=== PATIENT | male | born 1935 | race Caucasian/White ===

== ENCOUNTER 2017-01-01 21:32 | Inpatient (IN) | payer OTHER ==
[~2017-01-01] VITALS: Ht 177.8 cm; Wt 71.8 kg
--- NOTE | ~2017-01-01 | EKG ---
[address] [place] [address] ELECTROCARDIOGRAM REPORT Name: MIKAELCLEVELAND ALEJANDRO Room #: 434-P ADM IN M.R.#: [id number] Admission: 01/02/17 Attend Phys: Shell Carvajal Discharge: Date of : 31 Report #: [id number] THIS REPORT FOR: //name// [facility] Test Date: 2017-01-06 Test Time: 10:03:13 Pat Name: CLEVELAND YOUSSFE Department: Room: 434 P Gender: M Leather Softener: Tara ELLIOTT : 1935 Requested By: Shell Carvajal Order Number: [id number] MD: Alexander Gage Measurements Intervals [place] Rate: 107 P: -39 DC: 162 QRS: 60 QRSD: 147 T: 49 QT: 355 QTc: 474 Interpretive Statements Sinus tachycardia Right bundle branch block Baseline wander in lead(s) V5 Compared to ECG 01/02/2017 08:01:36 No significant changes Electronically Signed On 01-07-2017 8:37:38 CDT by Alexander Gage [email or web address] <ELECTRONICALLY SIGNED> By: Alexander Gage MD, [facility] 01/07/17 0837 1003 1003 Alexander Gage MD, [facility] /EPI
--- NOTE | ~2017-01-01 | HC ---
[facility] [place] [address] CONSULTATION Name: CLEVELAND YOUSSEF Room #: 434-P ADM IN M.R.#: [id number] Admission: 01/02/17 Attend Phys: Shell Carvajla Discharge: Date of : 31 Report #: [id number] THIS REPORT FOR: //name// CC: FAM unknown Shell Carvajal HISTORY OF PRESENT ILLNESS: The patient was admitted yesterday through the Emergency Room for right upper quadrant pain as well as diffuse abdominal pain and discomfort. The patient stated that this pain started about a week ago. It has been waxing and waning and has been consistent starting as of yesterday. The patient denies any recent bowel movements or any flatulence since the consistency has started yesterday. The patient does have a known infrarenal abdominal aneurysm that he is following Dr. Gage for and on CAT scan done on this admission, found to have this aneurysm being measured at 4.7 cm. The patient states he has not had any symptoms with this and has been following with Dr. Gage on a regular basis. PAST MEDICAL HISTORY: Peripheral vascular disease, coronary artery disease, COPD, chronic kidney disease stage 3, hyperlipidemia, has had pneumonia in 2012 and history of hypertension. PAST SURGICAL HISTORY: Cataract surgery, aortic valve replacement in 1997, cardiac stents in 2011, bilateral inguinal hernia repairs and bilateral breast lumpectomy is benign. SOCIAL HISTORY: The patient is , has 3 children. He is a former smoker, quit 7 years ago, previously smoked a pack and a half a day x 40 years and the patient does not drink any alcohol or use illicit drugs. FAMILY HISTORY: Mother and father are both . Mother at age 96. Father at 67 secondary to PR. ALLERGIES: No known drug allergies. MEDICATIONS: As follows: 1. Multivitamin. 2. Simvastatin 40 mg. 3. Omeprazole 20 mg. 4. Hydrochlorothiazide 25 mg. 5. Aspirin 81 mg. 6. K-Dur 20 mEq. 7. Combivent. 8. Advair 250/50. 9. Tylenol 325. 10. Diltiazem HCL 240 mg daily. REVIEW OF SYSTEMS: Twelve-point review of systems completed. [facility] [address] [place] [address] CONSULTATION Name: RBEANNAJanetCLEVELAND ALEJANDRO Room #: 434-P [facility] IN M.R.#: [id number] Admission: 01/02/17 Attend Phys: Shell Carvajal Discharge: Date of : 33 Report #: [id number] CONSTITUTION: Denies any fatigue, difficulty sleeping. HEENT: Does complain of recurrent headache. Denies any dizziness or hearing loss. RESPIRATORY: Does have some mild shortness of breath. Denies dyspnea or orthopnea. Denies any wheezing or coughing. CARDIOVASCULAR: Denies any chest pain, jaw pain, arm pain or murmurs. SKIN: Denies any rashes, psoriasis or eczema. ENDOCRINE: Denies any cold feet, night sweats or lack of concentration. GASTROINTESTINAL: Denies any nausea, vomiting or diarrhea . The patient does not have any bowel movements or any flatulence; however, was having normal bowel movements up until a few days ago. GENITOURINARY: Denies any urinary frequency, bloody urine or painful urination. NEUROLOGIC: Denies any seizures or neuropathy. PSYCHOLOGIC: Denies any hallucination, depression or anxiety. MUSCULOSKELETAL: Denies joint pain, stiffness, or swelling. Denies leg claudication. Denies any lupus, rheumatoid arthritis or celiac disease. PHYSICAL EXAMINATION: VITAL SIGNS: Blood pressure is 140/57, heart rate of 100, respirations 16, temperature is 36.4, O2 sat of 95% on 2 liters via nasal cannula. GENERAL: The patient is well-developed, well-nourished, has normal speech and mentation. HEENT: Eyes are PERRLA. He is normocephalic. Gaze appearing conjugate in all positions. No evidence of nystagmus. CARDIOVASCULAR: Regular rate and rhythm S1, S2, without murmur, gallops or thrills. LUNGS: Clear and equal in all dill. ABDOMEN: Soft, distended with tympany. Bowel sounds are hypoactive all around and is nontender to touch. SKIN: Has normal color, normal turgor. MUSCULOSKELETAL: A 5/5 strength in all muscle groups in upper and lower extremities. NEUROLOGIC: Cranial nerves 2-12 are examined and intact. The patient is alert and oriented x 3 and has +2 pulses to dorsalis pedis and posterior tibial bilateral. LABORATORY DATA: Sodium is 140, potassium is 3.9, chloride is 104, CO2 is 27, creatinine is 1.3, BUN is 53 and glucose is 86. White blood cell count is 13.7, hemoglobin is 13.8, hematocrit 41.9 and platelets are 232. CAT scan does show the patient to have an infrarenal abdominal aortic aneurysm measuring approximately 4.7 x 4.6 cm, does not appear to have any signs of dissection ASSESSMENT: Will be: 1. Infrarenal abdominal aortic aneurysm with above listed measurements. 2. Most likely the causative reason for abdominal distention is probable small-bowel obstruction. [facility] [address] [place] [address] CONSULTATION Name: CLEVELAND YOUSSEF Room #: 434-P ADM IN M.R.#: [id number] Admission: 01/02/17 Attend Phys: Shell Toth Priyankalonnie Discharge: Date of : 33 Report #: [id number] 3. Chronic kidney disease stage 3. 4. Hyperlipidemia. 5. Hypertension. 6. History of coronary artery disease. PLAN: At this time, we do not have any surgical indications for repair of abdominal aneurysm. We will continue to watch this patient. We will follow up with Dr. Gage. Dr. Monreal is planning on seeing the patient himself later on this evening and make final recommendations to the patient. Thank you for the consultation. <ELECTRONICALLY SIGNED> By: MAKENZIE Lisa 01/03/17 1451 1547 0003 MAKENZIE Lisa /nt
--- NOTE | ~2017-01-01 | HC ---
[facility] [place] [address] CONSULTATION Name: MIKAELCLEVELAND ALLEN Room #: 434-P ADM IN M.R.#: [id number] Admission: 01/02/17 Attend Phys: Shell Carvajal Discharge: Date of : 33 Report #: [id number] THIS REPORT FOR: //name// CC: FAM unknown Shell Carvajal DATE OF SERVICE: 01/02/2017 I have been asked to evaluate this 81-year-old male who has presented to the Emergency Department complaining of generalized abdominal pain, more severe in the right upper quadrant and a sensation of feeling bloated. HISTORY OF PRESENT ILLNESS: The patient reports that the pain began approximately last week, lasted 48 hours, then went away. He felt bloated and had some lower abdominal pain and approximately 2 days ago, the patient again had recurrence of his pain in the lower abdomen associated with loose stools. He denies melena or hematochezia. He denies any fever or chills, and has had some nausea and has had limited flatus in the last 24 hours. PAST MEDICAL HISTORY: Significant for aortic valve replacement in 1997, bioprosthetic valve, PVD, cardiac stent in 2011, COPD, AAA known for some time, chronic kidney disease stage 3, coronary artery disease, hyperlipidemia, pneumonia in 2012, he has had GI bleeding ulcers in the past, hypertension, bilateral inguinal hernia repairs and bilateral breast gynecomastia surgery, which were benign. CURRENT MEDICATIONS: Include multivitamins, Zocor 40 mg daily, omeprazole 20 mg daily, hydrochlorothiazide 25 mg, aspirin 81 mg, K-Dur, Advair Diskus, Tylenol and diltiazem 240 mg daily. ALLERGIES: No known drug allergies. SOCIAL HISTORY: He is , spouse is at the bedside. He previously smoked cigarettes for 40 years, a pack to pack and a half a day, 78-[id number] history of cigarette smoking. Alcohol, does not use and he quit cigarette smoking greater than 7 years ago. REVIEW OF SYSTEMS: His 10-point review of systems essentially noncontributory except for a recent change in gastrointestinal function and bloating with obstipation. PHYSICAL EXAMINATION: GENERAL: Reveals the patient who is comfortable, afebrile. VITAL SIGNS: Within normal limits, resting comfortably in bed. is at the bedside. HEENT: Pupils are equal, round, react to light. Extraocular movements within [address] [address] CONSULTATION Name: CLEVELAND YOUSSEF Room #: 434-P [facility] IN M.R.#: [id number] Admission: 01/02/17 Attend Phys: Shell Carvajal Discharge: Date of : 33 Report #: [id number] normal limits. No scleral icterus. NECK: Supple. LUNGS: Clear at the bases bilaterally. CARDIOVASCULAR: Regular rate and rhythm. ABDOMEN: Mild distention, mild tenderness in the right lower quadrant. No guarding or rebound. RECTAL: Not performed. NEUROLOGIC: He is oriented x 3, bilateral motor symmetry. Review of the patient's CAT scan demonstrates a very distal small bowel obstruction near the ileocecal valve, there is gas in the colon. There is dilated loops of small bowel. LABORATORY DATA: Demonstrated a white blood cell count with slight elevation at the time of presentation to the Emergency Department, now normal. Lactic acid level was greater than 2, now it is 1 with some IV fluids and hydration. DIAGNOSTIC IMPRESSION: Distal small-bowel obstruction without evidence of previous abdominal surgery. Plan would be IV fluids, NG suction, Buenrostro catheter for urinary retention at this time. GI consultation to consider the possibility of adequate NG decompression is achieved and prepping for a possible colonoscopy would be indicated, must consider the possibility of inflammatory changes in the distal small bowel versus neoplastic process. Thank you for allowing us to participate in his care. We will follow him with you. <ELECTRONICALLY SIGNED> By: Jose Luis Albert MD, FACS 01/03/17 0945 1153 2045 Jose Luis Albert MD, FACS /nt
--- NOTE | ~2017-01-01 | HC ---
[facility] [place] [address] CONSULTATION Name: CLEVELAND YOUSSEF Room #: 434-P [facility] IN M.R.#: [id number] Admission: 01/02/17 Attend Phys: Shell Carvajal Discharge: 01/08/17 Date of : 33 Report #: [id number] THIS REPORT FOR: //name// CC: FAM unknown Shell aCrvajal TYPE OF REPORT: Pulmonary consultation. PRIMARY CARE PHYSICIAN: Oscar Hoffman M.D. REFERRING PHYSICIAN: Shell Carvajal M.D. REASON FOR REFERRAL: Increasing dyspnea. HISTORY OF PRESENT ILLNESS: The patient is an 81-year-old white male who was admitted on 01/02/2017 with small-bowel obstruction. For the last day, the patient has developed increasing dyspnea. A pulmonary consultation was requested. The patient has known COPD. He is followed longitudinally by Dr. Jose Estevez. He has been managed medically for his small-bowel obstruction. He is improving. He has had bowel sounds along with bowel movements. Over the last day or so, he has noticed increasing dyspnea. He is congested. Otherwise, denies any chest pain or productive cough, purulent sputum or hemoptysis. His chest x-ray shows chronic left upper lobe volume loss for fibrosis. Calcified granuloma in the right upper lobe lung field. Small bilateral effusion. PAST MEDICAL HISTORY: Notable for COPD, severity unknown at this time; bioprosthetic aortic valve replacement in 1998; peripheral vascular disease; coronary artery disease with stent placement in 2011; abdominal aortic aneurysm; chronic kidney disease, stage 3; dyslipidemia and peptic ulcer disease. ALLERGIES: None to medications. HOME MEDICATIONS: Include Zocor, omeprazole, hydrochlorothiazide, aspirin, K-Dur, Combivent 1 puff q.i.d. p.r.n., one puff b.i.d., prednisone 10 mg once a day, Inderal and Tylenol p.r.n. FAMILY HISTORY: Noncontributory. SOCIAL HISTORY: The patient has smoked in the past but quit years ago. Denies any alcohol use. The patient is . REVIEW OF SYSTEMS: As mentioned above, otherwise 10-point system review [address] [address] CONSULTATION Name: CLEVELAND YOUSSEFLEY Room #: 434-P [facility] IN [facility].#: [id number] Admission: 01/02/17 Attend Phys: Shell Carvajal Discharge: 01/08/17 Date of : 33 Report #: [id number]. PHYSICAL EXAMINATION: GENERAL: He is awake and alert, in no distress. VITAL SIGNS: Temperature is 97.7 degrees Fahrenheit, pulse is 110, respiratory rate is 24, blood pressure 141/54 mmHg and saturation 95%. HEENT: Normocephalic and atraumatic. NECK: Supple, without lymphadenopathy or thyromegaly. CHEST: Breath sounds are fair with a few scattered crackles. No wheezes. CARDIOVASCULAR: Normal S1 and S2. No murmurs or gallop. Pulses are 2+/4+ bilaterally. ABDOMEN: Moderately distended. Positive bowel sounds. No masses felt. GENITOURINARY: Deferred. RECTAL: Deferred. EXTREMITIES: No cyanosis, clubbing, edema. LABORATORY DATA: Chest x-ray as mentioned above. Sodium 142, potassium 2.9, chloride 108, CO2 is 26, BUN is 6 and creatinine 0.7. Liver function test was grossly unremarkable. WBC 10,400; hemoglobin is 11.3 and platelets are normal. Albumin 2.6. Magnesium is low at 1.0. IMPRESSION: 1. Dyspnea in this 81-year-old white male with partial small-bowel obstruction. Etiology is secondary to underlying chronic obstructive pulmonary disease with mild exacerbation. Pneumonia is less likely. 2. Small-bowel obstruction slowly resolving. This is felt to be related to adhesions. 3. Acute kidney injury/chronic kidney disease. 4. Coronary artery disease, status post prior stent. 5. Peripheral vascular disease including abdominal aortic aneurysm, stable on recent CT imaging studies. 6. Nonsustained supraventricular tachycardia, clinically stable. RECOMMENDATIONS: Agree with bronchodilators and corticosteroids. Chest physiotherapy will be initiated. Wean O2 for saturation 90%. Thank you for this consultation. <ELECTRONICALLY SIGNED> By: Thomas Miranda MD 01/08/17 1732 1513 30 Thomas Miranda MD /nt
--- NOTE | ~2017-01-01 | EKG ---
[address] [address] ELECTROCARDIOGRAM REPORT Name: CLEVELAND YOUSSEF Room #: 434-P ADM IN M.R.#: [id number] Admission: 01/02/17 Attend Phys: Shell Carvajal Discharge: Date of : 33 Report #: [id number] THIS REPORT FOR: //name// [facility] Test Date: 2017-01-02 Test Time: 08:01:36 Pat Name: CLEVELAND YOUSSEF Department: Room: 434 P Gender: M Bindery Worker: Tara ELLIOTT : 1935 Requested By: America Bloom Order Number: [id number] MD: Brian Abdi Measurements Intervals [place] Rate: 104 P: 53 SC: 173 QRS: 84 QRSD: 132 T: 70 QT: 377 QTc: 496 Interpretive Statements Sinus tachycardia Right bundle branch block Compared to ECG 01/13/2015 17:24:17 Ventricular premature complex(es) no longer present Left anterior fascicular block no longer present Bifascicular block no longer present Electronically Signed On 01-02-2017 20:47:57 CDT by Brian Abdi [email or web address] <ELECTRONICALLY SIGNED> By: Brian Abdi MD 01/02/17 2047 0 0 Brian Abdi MD /EPI
[~2017-01-01 21:32] MED LIST: ADVAIR 250-501 EACH INH; ASPIRIN EC81 M1 PO; ASPIRIN325 PO; AUGMENTIN 875875 MG; AZITHROMYCIN 2250 MG; CEFTIN 250 MG250 MG PO; CIPRO500 M1 PO; COMBIVENT INH; COMBIVENT RESPIM4 GM INH; COREG6.25 MG PO; HYDROCHLOROTHIA25 M1 PO; INDERAL LA160 M1 PO; K-DUR 20 MEQ T20 MEQ PO; KEFLEX500 MG PO; KLOR-CON PO; MUCINEX TA600 MG/TA2 PO; MUCINEX600 MG PO; MULTI-VITAMIN1 EAC5 PO; OMEPRAZOLE 20 M20 MG PO; PLAVIX 75 MG TA75 M1 PO; PREDNISONE 1 MG1 M1; PREDNISONE 10 M10 MG PO; PROPRANOLOL 1010 MG PO; SIMVASTATIN40 MG PO; TYLENOL325 MG PO; ULTRAM 50MG TAB50 MG; VIBRAMYCIN 100100 M2 PO
[2017-01-01 21:34] VITALS: BP 127/73
[2017-01-01 22:36] LABS: HEMATOCRIT 41.9 % (42.0-52.0); HEMOGLOBIN 13.8 gm/dL (14.0-18.0); MCH 29.3 pg (26.0-34.0); MCHC 32.9 g/dL (28.0-37.0); PLATELET COUNT 232 thou/uL (150-400); RBC 4.71 mil/uL (4.50-6.00); RDW 14.3 % (10.5-14.5); WBC 13.7 thou/uL (4.0-11.0)
[2017-01-01 22:37] LABS: MANUAL DIFF YES
[2017-01-01 22:48] LABS: ALBUMIN 3.8 g/dL (3.4-5.0); CALCIUM 9.4 mg/dL (8.5-10.1); CREATININE 1.6 mg/dL (0.7-1.3); DIRECT BILIRUBIN 0.2 mg/dL (<0.1-0.3); TOTAL BILIRUBIN 0.9 mg/dL (<0.1-1.0); TOTAL PROTEIN 7.3 g/dL (6.4-8.2)
[2017-01-01 22:58] LABS: ANISOCYTOSIS SLIGHT; TOTAL CELL COUNT 100
[2017-01-02 01:12] VITALS: BP 139/68
[2017-01-02 01:40] LABS: URINE BILIRUBIN NEGATIVE (Negative); URINE BLOOD NEGATIVE (Negative); URINE COLOR YELLOW; URINE GLUCOSE-RANDOM* NEGATIVE (Negative); URINE KETONES NEGATIVE (Negative); URINE NITRITE NEGATIVE (Negative); URINE PROTEIN (DIPSTICK) NEGATIVE (Negative); URINE SPECIFIC GRAVITY 1.015 (1.003-1.035)
[2017-01-02 01:52] VITALS: BP 146/64
[2017-01-02] MEDS ORDERED: CARTIA XT240 M1 PO (02:20)
[2017-01-02 05:59] VITALS: BP 128/66
[2017-01-02 06:15] LABS: ANION GAP 9 mmol/L (7-16); BUN 23 mg/dL (7-18); CALCIUM 8.6 mg/dL (8.5-10.1); CHLORIDE 104 mmol/L (98-107); CO2 27 mmol/L (21-32); CREATININE 1.3 mg/dL (0.7-1.3); GLUCOSE 86 mg/dL (74-106); POTASSIUM 3.9 mmol/L (3.5-5.1); SODIUM 140 mmol/L (136-145); TROPONIN-I < 0.04 ng/mL (<0.04-0.07)
[2017-01-02 07:26] VITALS: BP 140/57
[2017-01-02 16:39] VITALS: BP 120/60
[2017-01-02 19:20] VITALS: BP 128/52
[2017-01-03 00:08] VITALS: BP 104/50
[2017-01-03 04:30] VITALS: BP 104/48
[2017-01-03 05:28] LABS: HEMATOCRIT 35.5 % (42.0-52.0); MCH 29.3 pg (26.0-34.0); MCHC 33.1 g/dL (28.0-37.0); MCV 88.8 fL (80.0-100.0); PLATELET COUNT 186 thou/uL (150-400); RDW 14.7 % (10.5-14.5); WBC 12.3 thou/uL (4.0-11.0)
[2017-01-03 05:32] LABS: HEMOGLOBIN 11.8 gm/dL (14.0-18.0); MANUAL DIFF YES
[2017-01-03 05:45] LABS: ALBUMIN 2.8 g/dL (3.4-5.0); CALCIUM 8.2 mg/dL (8.5-10.1); CREATININE 1.3 mg/dL (0.7-1.3); MAGNESIUM 1.6 mg/dL (1.8-2.4); POTASSIUM 3.9 mmol/L (3.5-5.1); TOTAL BILIRUBIN 1.3 mg/dL (<0.1-1.0); TOTAL PROTEIN 5.8 g/dL (6.4-8.2)
[2017-01-03 06:00] VITALS: BP 113/47
[2017-01-03 07:39] LABS: ABSOLUTE NEUTROPHILS 10.6 thou/uL (1.4-8.2); TOTAL CELL COUNT 100
[2017-01-03 07:40] LABS: ANISOCYTOSIS SLIGHT; PLATELET ESTIMATE NORMAL
[2017-01-03 08:51] VITALS: BP 111/61
[2017-01-03 16:27] VITALS: BP 126/53
[2017-01-03 19:33] VITALS: BP 128/58
[2017-01-04 03:31] LABS: HEMATOCRIT 33.8 % (42.0-52.0); HEMOGLOBIN 11.3 gm/dL (14.0-18.0); MCH 29.9 pg (26.0-34.0); MCHC 33.5 g/dL (28.0-37.0); MCV 89.4 fL (80.0-100.0); PLATELET COUNT 196 thou/uL (150-400); RBC 3.78 mil/uL (4.50-6.00); RDW 14.5 % (10.5-14.5); WBC 10.4 thou/uL (4.0-11.0)
[2017-01-04 03:35] LABS: MANUAL DIFF YES
[2017-01-04 03:41] LABS: CALCIUM 8.4 mg/dL (8.5-10.1); MAGNESIUM 1.6 mg/dL (1.8-2.4); POTASSIUM 3.8 mmol/L (3.5-5.1)
[2017-01-04 04:28] VITALS: BP 151/58
[2017-01-04 05:44] LABS: ABSOLUTE NEUTROPHILS 8.1 thou/uL (1.4-8.2); TOTAL CELL COUNT 100
[2017-01-04 07:46] VITALS: BP 152/72
[2017-01-04 12:14] VITALS: BP 153/79
[2017-01-04 17:38] VITALS: BP 158/80
[2017-01-04 19:30] VITALS: BP 145/72
[2017-01-05] VITALS: BP 113/71
[2017-01-05 04:30] VITALS: BP 129/55
[2017-01-05 06:33] LABS: CALCIUM 8.4 mg/dL (8.5-10.1); CREATININE 0.9 mg/dL (0.7-1.3); POTASSIUM 3.4 mmol/L (3.5-5.1)
[2017-01-05 08:00] VITALS: BP 129/56
[2017-01-05 15:56] VITALS: BP 108/51
[2017-01-05 19:21] VITALS: BP 132/64
[2017-01-06 05:44] VITALS: BP 120/63
[2017-01-06 09:00] VITALS: BP 133/64
[2017-01-06 16:00] VITALS: BP 122/60
[2017-01-06 19:30] VITALS: BP 131/62
[2017-01-07 00:05] VITALS: BP 152/69
[2017-01-07 04:35] VITALS: BP 111/49
[2017-01-07 06:51] LABS: ALBUMIN 2.6 g/dL (3.4-5.0); CREATININE 0.7 mg/dL (0.7-1.3); PHOSPHORUS 2.9 mg/dL (2.5-4.9)
[2017-01-07 06:53] LABS: POTASSIUM 2.9 mmol/L (3.5-5.1)
[2017-01-07 08:00] VITALS: BP 141/54
[2017-01-07 16:00] VITALS: BP 121/58
[2017-01-07 16:39] LABS: MAGNESIUM 1.4 mg/dL (1.8-2.4); POTASSIUM 3.5 mmol/L (3.5-5.1)
[2017-01-07 19:15] VITALS: BP 120/58
[2017-01-07 21:26] LABS: MAGNESIUM 1.5 mg/dL (1.8-2.4); POTASSIUM 3.6 mmol/L (3.5-5.1)
[2017-01-08 04:51] VITALS: BP 131/54
[2017-01-08 07:26] VITALS: BP 138/65
[2017-01-08 07:57] LABS: CALCIUM 8.8 mg/dL (8.5-10.1); CREATININE 0.9 mg/dL (0.7-1.3); POTASSIUM 4.4 mmol/L (3.5-5.1)
[2017-01-08] MEDS ORDERED: FLOMAX0.4 MG PO (11:35)
[2017-01-08] MEDS ORDERED: PREDNISONE 20 M20 MG PO (11:40)
[2017-01-08] MEDS ORDERED: SENOKOT-S1 TA1 PO (11:41)
[2017-01-08 12:18] VITALS: BP 138/65
== END 2017-01-08 15:14 | disposition home or self-care (01) | DRG 388 ==
LOC: ER 21:32 → EROBS 01-02 00:24 → 4S 01-02 00:24
PROVIDERS: Emergency Medicine; Hospitalist; Nurse Practitioner Acute Care; Surgery
PROC: 0D9670Z Drainage of Stomach with Drainage Device, Via Natural or Artificial Opening (ICD-10-PCS; principal; 2017-01-05)
DX: K56.60 Unspecified intestinal obstruction (principal); E43 Unspecified severe protein-calorie malnutrition; N17.9 Acute kidney failure, unspecified; J44.1 Chronic obstructive pulmonary disease with (acute) exacerbation; I47.1 Supraventricular tachycardia; J96.10 Chronic respiratory failure, unspecified whether with hypoxia or hypercapnia; N18.3 Chronic kidney disease, stage 3 (moderate); I73.9 Peripheral vascular disease, unspecified; I25.10 Atherosclerotic heart disease of native coronary artery without angina pectoris; I71.4 Abdominal aortic aneurysm, without rupture; E87.6 Hypokalemia; I12.9 Hypertensive chronic kidney disease with stage 1 through stage 4 chronic kidney disease, or unspecified chronic kidney disease; Z82.49 Family history of ischemic heart disease and other diseases of the circulatory system; Z87.11 Personal history of peptic ulcer disease; Z79.899 Other long term (current) drug therapy; Z95.2 Presence of prosthetic heart valve; Z87.01 Personal history of pneumonia (recurrent); Z95.5 Presence of coronary angioplasty implant and graft; Z87.891 Personal history of nicotine dependence; Z83.79 Family history of other diseases of the digestive system; Z68.22 Body mass index [BMI] 22.0-22.9, adult; Z98.49 Cataract extraction status, unspecified eye
CPT/HCPCS: 10100

== ENCOUNTER 2017-01-10 05:48 | Inpatient (IN) | payer OTHER ==
[~2017-01-10] VITALS: Ht 177.8 cm; Wt 74.8 kg
[2017-01-10] VITALS (50 sets, daily range): BP systolic 98–148; BP diastolic 50–107
--- NOTE | ~2017-01-10 | EKG ---
[address] [address] ELECTROCARDIOGRAM REPORT Name: MIKAELCLEVELAND ALEJANDRO Room #: 246-P ADM IN M.R.#: [id number] Admission: 01/10/17 Attend Phys: Bandar Wood MD Discharge: Date of : 33 Report #: [id number] THIS REPORT FOR: //name// [facility] ED Test Date: 2017-01-10 Test Time: 05:51:28 Pat Name: CLEVELAND YOUSSEF Department: Room: 246 Gender: M Monument Erector: logan : 1935 Requested By: Eddie Orellana Order Number: [id number] MD: Alexander Gage Measurements Intervals [place] Rate: 139 P: 79 VT: 120 QRS: 13 QRSD: 129 T: 55 QT: 301 QTc: 458 Interpretive Statements Sinus tachycardia Right bundle branch block Baseline wander in lead(s) V2 Compared to ECG 01/06/2017 10:03:13 No significant change was found Electronically Signed On 01-12-2017 15:31:49 CDT by Alexander Gage [email or web address] <ELECTRONICALLY SIGNED> By: Alexander Gage MD, [facility] 01/12/17 1531 0551 0551 Alexander Gage MD, [facility] /EPI
--- NOTE | ~2017-01-10 | HC ---
[facility] [place] [address] CONSULTATION Name: CLEVELAND YOUSSEF Room #: 246-P ADM IN M.R.#: [id number] Admission: 01/10/17 Attend Phys: Bandar Wood MD Discharge: Date of : 33 Report #: [id number] THIS REPORT FOR: //name// CC: Bandar Ellsworth INFECTIOUS DISEASE CONSULTATION DATE OF CONSULTATION: 01/11/2017. ATTENDING PHYSICIAN: Dr. Moreno. REASON FOR CONSULTATION: Positive blood cultures. HISTORY OF PRESENT ILLNESS: The patient is an 81-year-old white man recently discharged from [facility] after is evaluated for some bowel obstruction that resolved without surgery. The patient at present time is admitted with increasing shortness of breath. His initial workup included a couple of blood cultures that revealed Staphylococcus aureus. At present, the patient on 10-12 liters oxygen supplementation. He requires between 4-6 liters per minute at home on account of chronic obstructive pulmonary disease. The patient reports pain on the dorsal aspect of right wrist where he had an IV access previously. PAST MEDICAL HISTORY: Chronic obstructive pulmonary disease and previous episode of pneumonia. Coronary artery disease, coronary artery stenting. Status post aortic valve replacement with bioprosthetic valve [address] Messi Aaron. Peripheral vascular disease. Abdominal aortic aneurysm. Chronic kidney disease. Recurrent episode of pneumonia. Dyslipidemia. DRUG ALLERGIES: None listed. MEDICATIONS: The patient is on treatment with Levaquin 750 mg every 48 hours, vancomycin 1 g IV every 12 hours, Zosyn grams IV every 6 hours. He is also receiving potassium chloride supplementation. Aspirin, pantoprazole, enoxaparin, methylprednisolone, tamsulosin, furosemide p.r.n., acetaminophen, Cardizem, p.r.n. hydrocodone, Atrovent, albuterol inhalation treatments, magnesium and potassium supplementation per protocol. SOCIAL HISTORY: See history and physical records. FAMILY HISTORY: See history and physical records. REVIEW OF SYSTEMS: As above. PHYSICAL EXAMINATION: GENERAL: Elderly man, not toxic looking, in no distress, afebrile. [facility] [address] [place] [address] CONSULTATION Name: CLEVELAND YOUSSEF Room #: 246-P [facility] IN .R.#: [id number] Admission: 01/10/17 Attend Phys: Bandar Wood MD Discharge: Date of : 33 Report #: [id number] VITAL SIGNS: Temperature maximum since admission 99.5, pulse 143 down to 116, respirations 21, blood pressure 103/58. HEENMT: Head normocephalic, atraumatic. Pupils reactive. Conjunctivae no subconjunctival hemorrhage. Mouth normal. NECK: Supple, no thyromegaly. LUNGS: Few crackles, left base posteriorly. HEART: No gallop or murmur. ABDOMEN: Soft, no masses or megaly. GENITALIA AND RECTAL: Deferred. EXTREMITIES: There is induration and point tenderness dorsal aspect right distal forearm, wrist. There is trace pretibial edema. NEUROLOGIC: Grossly within normal limits. LABORATORY DATA: Sodium 139, potassium 2.8, BUN 22, creatinine 1.3, glucose 152, magnesium 1.4. WBC 23,600, hemoglobin 11.3 g/dL, platelets 320,000. Methicillin-resistant Staphylococcus aureus screen negative. Respiratory viral panel by PCR pending. Urinalysis negative. ABGs , pCO2 of 42, pO2 of 64, bicarbonate 30.2. This set of gases on FIO2 of 40%, 6 of PEEP and BiPAP on pressure support. MICROBIOLOGY DATA: Blood cultures obtained on 01/10/2017, 09/05 revealed Staphylococcus aureus, the third culture remained negative so far. It is said to be presumptive methicillin-resistant Staphylococcus aureus. Urine negative for legionella antigen and Streptococcus pneumoniae antigen. RADIOLOGY EVALUATION: CT scan of the chest negative for pulmonary embolisms, positive for chronic obstructive pulmonary disease, a bullous and chronic changes, left lung base posteriorly. ASSESSMENT: 1. Staphylococcus aureus bacteremia, possibly secondary to right wrist previous IV access. 2. Chronic obstructive pulmonary disease with respiratory failure. 3. Status post bioprosthetic aortic valve replacement 19 years ago. 4. Chronic kidney disease. 5. Recent bowel obstruction. SUGGESTIONS: Recommend repeat blood cultures x 2. Continue vancomycin for sure. Possibly history line antibiotic regimen and discontinue Levaquin, Zosyn shortly. Discuss situation with the patient's family, [place] [address] CONSULTATION Name: CLEVELAND YOUSSEF Room #: 246-P ADM IN M.R.#: [id number] Admission: 01/10/17 Attend Phys: Bandar Wood MD Discharge: Date of : 33 Report #: [id number] Wood, thank you for requesting our suggestions in the care of your patient. <ELECTRONICALLY SIGNED> By: Niels Abdi MD 01/12/17 0624 0909 1454 Niels Abdi MD /nt
--- NOTE | ~2017-01-10 | HC ---
[facility] [place] [address] CONSULTATION Name: CLEVELAND YOUSSEF Room #: 201-P ADM IN M.R.#: [id number] Admission: 01/10/17 Attend Phys: Bandar Wood MD Discharge: Date of : 31 Report #: [id number] THIS REPORT FOR: //name// CC: Bandar Hoffman MD DATE OF SERVICE: 01/10/2017 REASON FOR CONSULTATION: Respiratory failure. CHIEF COMPLAINT: Shortness of breath. HISTORY OF PRESENT ILLNESS: Our group was asked to see the patient in consultation while hospitalized at [facility], just discharged on the 08 of January after being admitted for a small-bowel obstruction, apparently resolved; however, he had some increased shortness of breath and felt possibly due to small-bowel obstruction or due to COPD exacerbation. The patient had increasing shortness of breath last night, cough with difficulty clearing sputum, had some left upper thoracic pain , was anteriorly, felt like it is going posteriorly into the back, had some low-grade fevers. No chills or sweats. Cough productive of yellow sputum. Denies any hemoptysis. The patient is typically on inhaled therapy and some supplemental oxygen for his chronic COPD. When he presented to the emergency department, a CT scan of the chest PE protocol revealed predominately scattered right-sided pulmonary infiltrates and severe emphysema, small bilateral pleural effusions. He has received some diuresis, systemic steroids, bronchodilators, and is on antibiotics for healthcare-associated pneumonia and placed on noninvasive positive pressure ventilation with BiPAP, currently in ICU, resting comfortably. He is speaking in full sentences while on BiPAP and does not appear in any distress. ALLERGIES: None known. HOME MEDICATIONS: 1. Aspirin 81 mg daily. 2. Diltiazem 240 mg daily. 3. Advair 250/50 twice daily. 4. Combivent inhaler p.r.n. 5. Hydrochlorothiazide 25 mg daily. 6. Multivitamin. 7. Prilosec daily. 8. Recently on prednisone. 9. Senokot. 10. Simvastatin. [address] [address] CONSULTATION Name: CLEVELAND YOUSSEF Room #: 201-P [facility] IN M.R.#: [id number] Admission: 01/10/17 Attend Phys: Bandar Wood MD Discharge: Date of : 33 Report #: [id number] 11. Tamsulosin. SOCIAL HISTORY: The patient is an ex-smoker. No significant alcohol abuse. He is . Currently retired. FAMILY HISTORY: Negative for any significant pulmonary disease. REVIEW OF SYSTEMS: CONSTITUTIONAL: Noted low grade fever, did not check temperature, no chills or rigors. ENT: No upper respiratory congestion, rhinorrhea or dysphagia. CARDIOVASCULAR: No chest pains or palpitations. GASTROINTESTINAL: Some abdominal distention and recent small-bowel obstruction which appeared to be resolved. The patient states he is having bowel movement. GENITOURINARY: No dysuria, no frequency. INTEGUMENT: Denies any rash. MUSCULOSKELETAL: Some right wrist pain of unclear etiology, feels that it might be related to recent IV site. PHYSICAL EXAMINATION: VITAL SIGNS: Temperature 98.9, 99.5 in the emergency department, pulse 130s and regular, respiratory rate 24, blood pressure 120/62, oxygen saturation 99% on current BiPAP of 16/6, 60%. GENERAL: This is a pleasant elderly male, does not appear in any distress. HEENT: Was not assessed due to BiPAP being in place. NECK: Supple. No lymphadenopathy. Jugular venous pressure does not appear elevated. LUNGS: Diminished with some inspiratory crackles. CARDIOVASCULAR: Heart was tachycardic, but regular. No murmurs noted. ABDOMEN: Soft, mild attention, bowel sounds are active. EXTREMITIES: 1+ lower extremity edema. No clubbing or cyanosis. LABORATORY DATA: A CT scan as described in HPI. Sodium 137, potassium 4.3, chloride 99, bicarbonate 29, BUN 21, creatinine 1.3, glucose 69. White blood cell count 23,000, hemoglobin 12, hematocrit 37, and platelet count 363. Arterial blood gas on BiPAP 16/6, 60% FIO2 revealed pH 7.52, pCO2 of 34, pO2 of 197, and bicarbonate 28. Cultures are pending. IMPRESSION: 1. Healthcare-associated pneumonia. 2. Acute hypoxemic respiratory failure on chronic hypoxemic respiratory failure. 3. Sinus tachycardia. 4. Chronic obstructive pulmonary disease with acute exacerbation. 5. Recent small-bowel obstruction. [address] [address] CONSULTATION Name: CLEVELAND YOUSSEF Room #: 201-P ADM IN M.R.#: [id number] Admission: 01/10/17 Attend Phys: Bandar Wood MD Discharge: Date of : 33 Report #: [id number] RECOMMENDATIONS: 1. Continue with Zosyn and vancomycin. 2. Await cultures. 3. Urinary pneumococcal legionella antigen test. 4. Nasal swab for respiratory viral panel. 5. Bronchodilators q. 4 hours. 5. Systemic steroids with taper. 6. ICU care. 7. BiPAP as needed during the day until overall improved. 8. Additional recommendations to follow. We will follow along with you. Thank you for requesting our suggestions. <ELECTRONICALLY SIGNED> By: Harshal Ledesma MD 01/20/17 1203 1229 0139 Harshal Ledesma MD /abdirahman
--- NOTE | ~2017-01-10 | 2DMMODE ---
[facility] [address] [place] [address] 2 D/M-MODE ECHOCARDIOGRAM Name: MIKAELCLEVELAND ALEJANDRO Room #: 246-P ADM IN M.R.#: [id number] Admission: 01/10/17 Attend Phys: Bandar Wood Discharge: Date of : 33 Date of Service: 01/10/17 1826 Report #: [id number] THIS REPORT FOR: //name// APPROVED REPORT Study performed: 01/10/2017 12:30:08 EXAM: Comprehensive 2D, Doppler, and color-flow Echocardiogram Patient Location: Bedside Room #: 246 Status: routine Other Information Study Quality: Adequate/Patient in ICU on BiPAP Indications Congestive Heart Failure COPD AVR Bioprosthetic, CAD, Stents 2D Dimensions RVDd: 39.72 mm LVEF(%): 73.62 (>50%) IVSd: 8.42 (7-11mm) LVOT Diam: 21.53 (18-24mm) LVDd: 39.92 mm PWd: 8.09 (7-11mm) Ascending Ao: 31.71 (22-36mm) LVDs: 23.13 (25-40mm) Aortic Root: 28.69 mm IVC: 2.40 mm Knapp's LVEF: 73.62 % Volumes Left Atrial Volume (Systole) Single Plane 4CH: 25.35 mL Single Plane 2CH: 41.05 mL LA ESV Index: 19.00 mL/m2 Aortic Valve AoV Peak Cheo.: 2.41 m/s AO Peak Gr.: 23.25 mmHg LVOT Max P.90 mmHg AO Mean Gr.: 8.67 mmHg AO V2 Mean: 1.31 m/s LVOT Max V: 1.80 m/s AO V2 VTI: 30.82 cm ERIC Vmax: 2.71 cm2 Mitral Valve E/A Ratio: 0.6 [facility] [place] [address] 2 D/M-MODE ECHOCARDIOGRAM Name: CLEVELAND YOUSSEF ALEJANDRO Room #: 246-P [facility] IN M.R.#: [id number] Admission: 01/10/17 Attend Phys: Bandar Wood Discharge: Date of : 33 Date of Service: 01/10/17 1826 Report #: [id number] MV Decel. Time: 196.31 ms MV E Max Cheo.: 0.83 m/s MV A Cheo.: 1.29 m/s MV PHT: 56.93 ms Pulmonary Valve PV Peak Cheo.: 0.96 m/s PV Peak Gr.: 3.71 mmHg Pulmonary Vein P Vein S: 0.85 m/s P Vein A: 0.41 m/s P Vein D: 0.37 m/s P Vein S/D Ratio: 2.30 Tricuspid Valve TR Peak Cheo.: 3.69 m/s RAP Estimate: 10.00 mmHg TR Peak Gr.: 54.63 mmHg PA Pressure: 65.00 mmHg Left Ventricle The left ventricle is normal size. There is normal LV segmental wall motion. There is normal left ventricular wall thickness. The left ventricular systolic function is normal. The left ventricular ejection fraction is within the normal range. LVEF is 55-60%. This study is not technically sufficient to allow evaluation of the LV diastolic function due to tachycardia. Right Ventricle Right ventricle is dilated. The right ventricular systolic function is normal. Atria Left atrium is dilated. Right atrium is dilated. Aortic Valve Bioprosthetic aortic valve is present with a peak velocity of 2.4 m/s and a peak gradient of 23 mmHg and mean of 9 mmHg. Trace aortic regurgitation. Mitral Valve Mild mitral annular calcification. Mild mitral regurgitation. No evidence of mitral valve stenosis. Tricuspid Valve The tricuspid valve is normal in structure. There is mild tricuspid regurgitation. The right atrial pressure is estimated at 10 mmHg. There is moderate pulmonary hypertension with an estimated PAP of [address] [place] [address] 2 D/M-MODE ECHOCARDIOGRAM Name: CLEVELAND YOUSSEF Room #: 246-P [facility] IN M.R.#: [id number] Admission: 01/10/17 Attend Phys: Bandar Wood Discharge: Date of : 33 Date of Service: 01/10/17 1826 Report #: [id number]. Pulmonic Valve The pulmonary valve is normal in structure. Trace pulmonic regurgitation. Great Vessels The aortic root is normal in size. IVC is dilated and collapses >50% with inspiration. Pericardium There is no pericardial effusion. <Conclusion> The left ventricular systolic function is normal. LVEF is 55-60%. There is normal LV segmental wall motion. Bioprosthetic aortic valve is present with a peak gradient of 23 mmHg and mean of 9 mmHg (normal). Mild mitral annular calcification. Mild mitral regurgitation. Pulmonary artery pressure of 65mmHg There is no pericardial effusion. <ELECTRONICALLY SIGNED> By: Alexander aGge MD, FACC 01/10/171825 25 25 Alexander Gage MD, FACC /INF
--- NOTE | ~2017-01-10 | EKG ---
[address] [address] ELECTROCARDIOGRAM REPORT Name: CLEVELAND YOUSSEF Room #: 246-P ADM IN M.R.#: [id number] Admission: 01/10/17 Attend Phys: aBndar Wood MD Discharge: Date of : 33 Report #: [id number] THIS REPORT FOR: //name// [facility] Test Date: 2017-01-10 Test Time: 15:08:59 Pat Name: CLEVELAND YOUSSEF Department: Room: 246 P Gender: M Molding Machine Tender: MARIANNA : 1935 Requested By: Alexander Gage Order Number: [id number] MD: Alexander Gage Measurements Intervals [place] Rate: 118 P: 88 MD: 138 QRS: -16 QRSD: 136 T: 53 QT: 340 QTc: 477 Interpretive Statements Sinus tachycardia Multiple premature complexes, supraven Right bundle branch block Baseline wander in lead(s) V3 Compared to ECG 01/06/2017 10:03:13 no significant change was found Electronically Signed On 01-12-2017 15:42:24 CDT by Alexander Gage [email or web address] <ELECTRONICALLY SIGNED> By: Alexander Gage MD, [facility] 01/12/17 1542 1508 1508 Alexander Gage MD, [facility] /EPI
--- NOTE | ~2017-01-10 | HC ---
[facility] [place] [address] CONSULTATION Name: MIKAELCLEVELAND ALLEN Room #: 201-P ADM IN M.R.#: [id number] Admission: 01/10/17 Attend Phys: Bandar Wood MD Discharge: Date of : 33 Report #: [id number] THIS REPORT FOR: //name// CC: Bandar Ellsworth DATE OF SERVICE: 01/17/2017 HISTORY OF PRESENT ILLNESS: The patient is an 81-year-old white male who was previously admitted 01/02/2017 through 01/08/2017 to [facility] with a small bowel obstruction. He had urinary retention, warranting Buenrostro catheter placement, started on Flomax. He had SVT, which was treated. NG-tube was discontinued. He was able to be discharged to home on oxygen. He unfortunately began developing worsening shortness of breath and ended up being readmitted on 01/10/2017. He was diagnosed with a healthcare-associated pneumonia, acute on chronic hypoxemic respiratory failure, sepsis with MRSA bacteremia. Noted to have sinus tachycardia. He had congestive heart failure with compensated pulmonary hypertension. He had a superficial thrombophlebitis of the right wrist. He does have COPD with a COPD exacerbation with severe emphysema and Pulmonary Medicine is closely involved as well as Cardiology, Infectious Disease as well as Internal Medicine. We are seeing him in rehabilitation medicine consultation. PAST MEDICAL HISTORY: Includes coronary artery disease with coronary stenting. He had an aortic valve replacement with bioprosthetic valve approximately 19 years ago, peripheral vascular disease, COPD, abdominal aortic aneurysm with recommendations to have it be rechecked in 6 months, chronic kidney disease stage 3, dyslipidemia, pneumonia in 2012 and 2014. FAMILY HISTORY: Noncontributory. MEDICATIONS: Please see the full medication listing. SOCIAL HISTORY: The patient lives with his , house, can stay on 1 floor. Did not utilize gait aids. Was not on oxygen up until his most recent hospitalization. is supportive. HABITS: Quit smoking many years ago. No history of alcohol abuse. REVIEW OF SYSTEMS: Did not offer any current complaints of chest pain, shortness of breath, abdominal discomfort. No complaints of headache. He has some discomfort of the wrist, but no other focal extremity pain complaints. He does note that he gets quite short of breath with increasing activity and that he is quite weak with all of the medical comorbidities. PHYSICAL EXAMINATION: He is a pleasant 81-year-old white male in no [address] [address] CONSULTATION Name: CLEVELAND YOUSSEF Room #: 201-P [facility] IN [facility]#: [id number] Admission: 01/10/17 Attend Phys: Bandar Wood MD Discharge: Date of : 33 Report #: [id number] distress. Last recorded temperature 97.4, pulse 101, respirations 16, blood pressure 108/48. He is alert, pleasant. HEENT appeared to be benign. Cranial nerves are grossly intact. Facies are symmetric. He is currently on 8 liters nasal prong O2. He has functional range of motion of both upper extremities. Some discomfort of that right wrist with some superficial erythema. Trace to 1+ edema. Strength is grade 3+ to 4-/5. Lower extremities, no focal calf swelling. Functional range of motion with strength a grade 4-/5. DTRs are trace to 1. He is min assist for toileting per Occupational Therapy and is dependent for lower extremity dressing. He is contact guard for sit to stand and marched in place contact guard with 10 marches. ASSESSMENT: An 81-year-old white male with the following problem list: 1. Pulmonary rehabilitation. 2. Acute on chronic hypoxic respiratory failure. 3. Sepsis. 4. Methicillin resistant Staphylococcus aureus bacteremia. 5. Healthcare-associated pneumonia. 6. Congestive heart failure. 7. Compensated pulmonary hypertension. 8. Sinus tachycardia. 9. Superficial thrombophlebitis, right wrist. 10. Chronic obstructive pulmonary disease exacerbation. PLAN: The patient has multiple medical comorbidities and is significantly debilitated. He does have medical complexity with generalized debilitation. We are being asked to evaluate him for an acute in-hospital inpatient rehabilitation stay. The advantage of the acute rehab titus would be that the multiple weight loss sales consultant physicians could continue to follow with him while he is undergoing therapy to maximize his functional independence with mobility and ADLs. Discussion was held with the patient's . We will be monitoring his endurance for therapies and we will be glad to follow along with you. By: 1400 1605 Brett Fang MD /nt
--- NOTE | ~2017-01-10 | H ---
[facility] [place] [address] HISTORY AND PHYSICAL Name: CLEVELAND YOUSSEF Room #: 246-P ADM IN M.R.#: [id number] Admission: 01/10/17 Attend Phys: Bandar Wood MD Discharge: Date of : 33 Report #: [id number] THIS REPORT FOR: //name// CC: Bandar Ellsworth CHIEF COMPLAINT: Shortness of breath and cough. HISTORY OF PRESENT ILLNESS: The patient is an 81-year-old man who was just hospitalized here for small-bowel obstruction, and discharged home couple of days ago. The patient was treated with NG tube suctioning, and he did not need any intervention. The patient has history of COPD, and had pneumonias in the past. Yesterday, the patient became short of breath, and this morning, he presented to the emergency room. In the ER, the patient was found to have leukocytosis with white cells at 22,000, he was tachypneic and his chest x-ray shows infiltrate. The patient has no history of congestive heart failure, but last few days he also reports lower extremity swelling. He had ABG this morning, that showed pCO2 of 34, pH of 7.35, and pO2 of 196. Currently, the patient is in the intensive care unit, BiPAP. His oxygen saturation is normal. He states that he feels much better on BiPAP. He received Rocephin and Levaquin in the emergency room. He is also started on Lasix. His blood pressure is stable, and he does not require any pressors. PAST MEDICAL HISTORY: History of coronary artery disease, status post cardiac stenting, aortic valve replacement with bioprosthetic valve, peripheral vascular disease, COPD, AAA, chronic kidney disease stage 3, dyslipidemia, and pneumonia in 2012 and 2014. FAMILY HISTORY: Reviewed and not pertinent to the patient's current condition. HOME MEDICATIONS: Reviewed and documented in the patient's chart. SOCIAL HISTORY: The patient quit smoking many years ago. He does not drink alcohol. REVIEW OF SYSTEMS: As above in HPI section, all others negative. PHYSICAL EXAMINATION: GENERAL: The patient is an elderly man who is in no apparent distress. VITAL SIGNS: His blood pressure is 128/62, heart rate is 131, respiration is 24, and temperature is 98.9. HEENT: Pupils are equal. Eye movements are normal. Sclerae are anicteric. [facility] [address] [place] [address] HISTORY AND PHYSICAL Name: CLEVELAND YOUSSEF Room #: 246-P [facility] IN ..#: [id number] Admission: 01/10/17 Attend Phys: Bandar Wood MD Discharge: Date of : 33 Report #: [id number] NECK: Supple. The patient has no thyromegaly. He has no JVD. Carotid bruits are not appreciated. RESPIRATORY: The patient has coarse respiratory sounds, more on the left side. CARDIOVASCULAR: The patient has distant S1 and S2. I could not auscultate murmurs or rubs, due to interference from the BiPAP. GASTROINTESTINAL: Abdomen is soft, nondistended, and nontender. Bowel sounds are present. The patient has no hepatomegaly or splenomegaly. MUSCULOSKELETAL: The patient has normal range of motion. He has 2+ pitting edema on ankles and feet. NEUROLOGIC: The patient is alert and oriented x3. His examination is nonfocal. SKIN: Reveals no skin lesions. Skin is dry and warm. LABORATORY DATA: Basic metabolic profile, electrolytes are essentially normal. Creatinine is 1.3. Liver function tests showed slightly high AST is 39. Troponin is normal, and undetectable. Lactic acid is not yet checked. On CBC, white count is 22.9 thousand. Hemoglobin is 12.3, hematocrit is 37.0, and platelets 363. He has no bandemia. Neutrophils are 88%. ABG as above. On chest x-ray, the patient has bilateral infiltrates. ASSESSMENT AND PLAN: This is an 81-year-old man who comes to the hospital with findings suggestive of healthcare-associated pneumonia. As noted, the patient was hospitalized here and was discharged 2 days ago. He was treated for small-bowel obstruction, and he did not require any surgery. The patient also has lower extremity swelling, that is new, and possible volume overload, and increased BNP. However, this is nonspecific as BNP can be higher in the sepsis and infection as well. Congestive heart failure cannot be completely ruled out. 1. Healthcare-associated pneumonia. Blood cultures will be obtained. The patient will be treated with vancomycin, Zosyn and Levaquin, and will be reassessed. [employer] consultation is very much appreciated. 2. Respiratory failure. The patient is on BiPAP, and he is already doing better. Condition will be monitored closely in the ICU. 3. Possible congestive heart failure. Echo will be obtained. Engineering Specialist is consulted. 4. Supraventricular tachycardias during the previous hospitalization. The patient is started on diltiazem. Currently, the patient is in sinus tachycardia. 5. Chronic kidney disease stage 3. Stable, and at baseline. 6. Deep venous thrombosis prophylaxis. We will use subcutaneous Lovenox. <ELECTRONICALLY SIGNED> By: Bandar Wood MD 01/15/17 1807 1159 1310 Bandar Wood MD /abdirahman
[~2017-01-10 05:48] MED LIST changes: +CARTIA XT240 M1 PO; +FLOMAX0.4 MG PO; +PREDNISONE 20 M20 MG PO; +SENOKOT-S1 TA1 PO
[2017-01-10 06:13] LABS: HEMOGLOBIN 12.3 gm/dL (14.0-18.0); MCH 29.3 pg (26.0-34.0); MCHC 33.2 g/dL (28.0-37.0); MCV 88.3 fL (80.0-100.0); PLATELET COUNT 363 thou/uL (150-400); RBC 4.19 mil/uL (4.50-6.00); RDW 14.7 % (10.5-14.5); WBC 22.9 thou/uL (4.0-11.0)
[2017-01-10 06:17] LABS: MANUAL DIFF YES
[2017-01-10 06:25] LABS: ANION GAP 9 mmol/L (7-16); BUN 21 mg/dL (7-18); CALCIUM 9.5 mg/dL (8.5-10.1); CHLORIDE 99 mmol/L (98-107); CO2 29 mmol/L (21-32); CREATININE 1.3 mg/dL (0.7-1.3); GLUCOSE 91 mg/dL (74-106); POTASSIUM 4.3 mmol/L (3.5-5.1); PROTIME 10.7 Seconds (9.3-11.4); SODIUM 137 mmol/L (136-145)
[2017-01-10 06:39] LABS: ALBUMIN 3.2 g/dL (3.4-5.0); ALKALINE PHOSPHATASE 56 U/L (46-116); CK-MB MASS 2.4 ng/mL (<0.5-3.6); MAGNESIUM 1.4 mg/dL (1.8-2.4); NT-PRO BRAIN NAT PEPTIDE 3248 pg/mL (<300); SGOT 39 U/L (15-37); SGPT 48 U/L (30-65); TOTAL PROTEIN 6.6 g/dL (6.4-8.2); TROPONIN-I < 0.04 ng/mL (<0.04-0.07)
[2017-01-10 06:46] LABS: ABSOLUTE NEUTROPHILS 20.2 thou/uL (1.4-8.2); TOTAL CELL COUNT 100
[2017-01-10 06:50] LABS: ABG SAMPLE TYPE ARTERIAL; HCO3 27.6 mmol/L (22.0-26.0); LACTATE 1.95 mmol/L (0.5-2.0); O2(CT) 17.7 mL/dL (15.0-23.0); O2Hb 98.4 % (92.0-98.0); PCO2 34.2 mmHg (35.0-45.0); PO2 196.9 mmHg (80.0-100.0); STICK SITE L.RADIAL; pH 7.525 (7.360-7.450); sO2 99.5 % (92.0-98.0); tCO2 28.7 mmol/L (24.0-30.0)
[2017-01-10 06:51] LABS: Pressure Support 16 cm H20
[2017-01-10 08:40] LABS: URINE BILIRUBIN NEGATIVE (Negative); URINE BLOOD NEGATIVE (Negative); URINE COLOR YELLOW; URINE GLUCOSE-RANDOM* NEGATIVE (Negative); URINE KETONES NEGATIVE (Negative); URINE LEUKOCYTES-REFLEX NEGATIVE (Negative); URINE PROTEIN (DIPSTICK) NEGATIVE (Negative); URINE UROBILINOGEN 0.2 E.U./dl (0.2-1.0)
[2017-01-10 19:03] LABS: HEMATOCRIT 37.4 % (42.0-52.0); HEMOGLOBIN 12.3 gm/dL (14.0-18.0); MANUAL DIFF YES; MCH 28.8 pg (26.0-34.0); MCHC 32.9 g/dL (28.0-37.0); MCV 87.7 fL (80.0-100.0); PLATELET COUNT 363 thou/uL (150-400); RBC 4.26 mil/uL (4.50-6.00); RDW 14.5 % (10.5-14.5)
[2017-01-10 19:26] LABS: ABSOLUTE NEUTROPHILS 26.4 thou/uL (1.4-8.2); TOTAL CELL COUNT 100
[2017-01-10 19:28] LABS: ABG SAMPLE TYPE ARTERIAL; BE(vivo) 5.8 mmol/L (-2 to +3); HCO3 29.3 mmol/L (22.0-26.0); LACTATE 3.42 mmol/L (0.5-2.0); O2(CT) 17.4 mL/dL (15.0-23.0); O2Hb 91.9 % (92.0-98.0); PCO2 38.5 mmHg (35.0-45.0); PO2 64.9 mmHg (80.0-100.0); pH 7.499 (7.360-7.450); sO2 94.3 % (92.0-98.0); tCO2 30.5 mmol/L (24.0-30.0)
[2017-01-10 19:30] LABS: Pressure Support 12 cm H20; STICK SITE L.RADIAL
[2017-01-11] VITALS (28 sets, daily range): BP systolic 93–114; BP diastolic 43–89
[2017-01-11 04:40] LABS: HEMATOCRIT 35.1 % (42.0-52.0); HEMOGLOBIN 11.3 gm/dL (14.0-18.0); MCH 28.4 pg (26.0-34.0); MCHC 32.3 g/dL (28.0-37.0); MCV 87.8 fL (80.0-100.0); PLATELET COUNT 320 thou/uL (150-400); RBC 3.99 mil/uL (4.50-6.00); RDW 14.8 % (10.5-14.5); WBC 23.6 thou/uL (4.0-11.0)
[2017-01-11 04:41] LABS: MANUAL DIFF YES
[2017-01-11 04:49] LABS: CALCIUM 9.1 mg/dL (8.5-10.1); CREATININE 1.3 mg/dL (0.7-1.3)
[2017-01-11 04:53] LABS: POTASSIUM 2.8 mmol/L (3.5-5.1)
[2017-01-11 05:41] LABS: ABG SAMPLE TYPE ARTERIAL; BE(vivo) 5.9 mmol/L (-2 to +3); HCO3 30.2 mmol/L (22.0-26.0); LACTATE 1.33 mmol/L (0.5-2.0); O2(CT) 16.1 mL/dL (15.0-23.0); O2Hb 92.2 % (92.0-98.0); PCO2 42.2 mmHg (35.0-45.0); PO2 64.9 mmHg (80.0-100.0); pH 7.472 (7.360-7.450); sO2 93.9 % (92.0-98.0); tCO2 31.5 mmol/L (24.0-30.0)
[2017-01-11 05:42] LABS: Pressure Support 16 cm H20; STICK SITE L.RADIAL
[2017-01-11 05:43] LABS: ABSOLUTE NEUTROPHILS 21.5 thou/uL (1.4-8.2); ANISOCYTOSIS SLIGHT; TOTAL CELL COUNT 100
[2017-01-11 10:24] LABS: MAGNESIUM 1.9 mg/dL (1.8-2.4)
[2017-01-11 10:31] LABS: POTASSIUM 2.8 mmol/L (3.5-5.1)
[2017-01-12] VITALS (25 sets, daily range): BP systolic 92–127; BP diastolic 38–71
[2017-01-12 04:39] LABS: HEMATOCRIT 33.3 % (42.0-52.0); HEMOGLOBIN 10.9 gm/dL (14.0-18.0); MCH 28.9 pg (26.0-34.0); MCHC 32.7 g/dL (28.0-37.0); MCV 88.2 fL (80.0-100.0); PLATELET COUNT 352 thou/uL (150-400); RBC 3.78 mil/uL (4.50-6.00); RDW 14.6 % (10.5-14.5); WBC 22.2 thou/uL (4.0-11.0)
[2017-01-12 04:42] LABS: MANUAL DIFF YES
[2017-01-12 04:50] LABS: CALCIUM 8.9 mg/dL (8.5-10.1); CREATININE 1.4 mg/dL (0.7-1.3); POTASSIUM 3.9 mmol/L (3.5-5.1)
[2017-01-12 05:17] LABS: ABSOLUTE NEUTROPHILS 21.1 thou/uL (1.4-8.2); ANISOCYTOSIS SLIGHT; MYELOCYTES 1 %; TOTAL CELL COUNT 100
[2017-01-13] VITALS (23 sets, daily range): BP systolic 93–116; BP diastolic 39–83
[2017-01-13 02:42] LABS: HEMOGLOBIN 10.6 gm/dL (14.0-18.0); MCH 28.9 pg (26.0-34.0); MCHC 33.1 g/dL (28.0-37.0); MCV 87.2 fL (80.0-100.0); PLATELET COUNT 371 thou/uL (150-400); RBC 3.67 mil/uL (4.50-6.00); RDW 14.4 % (10.5-14.5); WBC 16.6 thou/uL (4.0-11.0)
[2017-01-13 02:48] LABS: MANUAL DIFF YES
[2017-01-13 03:25] LABS: CALCIUM 8.7 mg/dL (8.5-10.1); CREATININE 1.5 mg/dL (0.7-1.3); POTASSIUM 3.2 mmol/L (3.5-5.1)
[2017-01-13 08:08] LABS: ABSOLUTE NEUTROPHILS 14.9 thou/uL (1.4-8.2); METAMYELOCYTES 3 %; TOTAL CELL COUNT 100
[2017-01-13 08:09] LABS: ANISOCYTOSIS SLIGHT
[2017-01-13 22:08] LABS: INFLUENZA B Negative (Negative); METAPNEUMOVIRUS Negative (Negative)
[2017-01-14] VITALS (13 sets, daily range): BP systolic 77–127; BP diastolic 35–72
[2017-01-14 01:45] LABS: HEMATOCRIT 31.7 % (42.0-52.0); HEMOGLOBIN 10.6 gm/dL (14.0-18.0); MANUAL DIFF YES; MCH 28.9 pg (26.0-34.0); MCHC 33.5 g/dL (28.0-37.0); MCV 86.2 fL (80.0-100.0); PLATELET COUNT 389 thou/uL (150-400); RBC 3.68 mil/uL (4.50-6.00); RDW 14.2 % (10.5-14.5); WBC 13.5 thou/uL (4.0-11.0)
[2017-01-14 01:51] LABS: CALCIUM 8.5 mg/dL (8.5-10.1); CREATININE 1.5 mg/dL (0.7-1.3); POTASSIUM 3.5 mmol/L (3.5-5.1)
[2017-01-14 02:29] LABS: ABSOLUTE NEUTROPHILS 11.2 thou/uL (1.4-8.2); MYELOCYTES 2 %; PROMYELOCYTES 1 %; TOTAL CELL COUNT 100
[2017-01-15] VITALS (21 sets, daily range): BP systolic 85–121; BP diastolic 36–85
[2017-01-15 04:19] LABS: HEMOGLOBIN 10.5 gm/dL (14.0-18.0); MCH 28.6 pg (26.0-34.0); MCHC 32.9 g/dL (28.0-37.0); MCV 86.8 fL (80.0-100.0); PLATELET COUNT 402 thou/uL (150-400); RBC 3.68 mil/uL (4.50-6.00); RDW 14.3 % (10.5-14.5); WBC 19.2 thou/uL (4.0-11.0)
[2017-01-15 04:20] LABS: MANUAL DIFF YES
[2017-01-15 04:26] LABS: CALCIUM 8.4 mg/dL (8.5-10.1); CREATININE 1.6 mg/dL (0.7-1.3); POTASSIUM 3.7 mmol/L (3.5-5.1)
[2017-01-15 05:06] LABS: ABSOLUTE NEUTROPHILS 15.7 thou/uL (1.4-8.2); METAMYELOCYTES 2 %; MYELOCYTES 1 %; TOTAL CELL COUNT 100
[2017-01-16] VITALS (18 sets, daily range): BP systolic 89–131; BP diastolic 39–66
[2017-01-16 05:24] LABS: HEMATOCRIT 32.7 % (42.0-52.0); HEMOGLOBIN 10.6 gm/dL (14.0-18.0); MCH 28.6 pg (26.0-34.0); MCHC 32.6 g/dL (28.0-37.0); MCV 87.7 fL (80.0-100.0); PLATELET COUNT 414 thou/uL (150-400); RBC 3.72 mil/uL (4.50-6.00); RDW 14.5 % (10.5-14.5); WBC 18.4 thou/uL (4.0-11.0)
[2017-01-16 05:27] LABS: MANUAL DIFF YES
[2017-01-16 05:31] LABS: CALCIUM 8.4 mg/dL (8.5-10.1); CREATININE 1.7 mg/dL (0.7-1.3); POTASSIUM 4.3 mmol/L (3.5-5.1)
[2017-01-16 05:49] LABS: ABSOLUTE NEUTROPHILS 15.6 thou/uL (1.4-8.2); METAMYELOCYTES 4 %; MYELOCYTES 2 %; TOTAL CELL COUNT 100
[2017-01-17 03:22] VITALS: BP 116/51
[2017-01-17 05:40] LABS: CALCIUM 8.3 mg/dL (8.5-10.1); CREATININE 1.6 mg/dL (0.7-1.3); POTASSIUM 4.2 mmol/L (3.5-5.1)
[2017-01-17 07:45] VITALS: BP 119/55
[2017-01-17 13:07] VITALS: BP 108/48
[2017-01-17 17:08] VITALS: BP 104/49
[2017-01-17 19:54] VITALS: BP 107/52
[2017-01-18 04:30] VITALS: BP 107/59
[2017-01-18 06:20] LABS: CALCIUM 8.1 mg/dL (8.5-10.1); CREATININE 1.6 mg/dL (0.7-1.3); POTASSIUM 3.3 mmol/L (3.5-5.1)
[2017-01-18 08:28] VITALS: BP 113/54
[2017-01-18 12:09] VITALS: BP 102/53
[2017-01-18 16:11] VITALS: BP 108/52
[2017-01-18 19:05] VITALS: BP 98/41
[2017-01-18 21:06] LABS: CALCIUM 8.2 mg/dL (8.5-10.1); CREATININE 1.8 mg/dL (0.7-1.3); MAGNESIUM 1.3 mg/dL (1.8-2.4); POTASSIUM 3.5 mmol/L (3.5-5.1)
[2017-01-19 03:58] VITALS: BP 106/55
[2017-01-19 05:41] LABS: POTASSIUM 3.3 mmol/L (3.5-5.1)
[2017-01-19 05:42] LABS: MAGNESIUM 1.8 mg/dL (1.8-2.4)
[2017-01-19 08:00] VITALS: BP 117/54
[2017-01-19 12:35] VITALS: BP 102/49; BP 86/36
[2017-01-19 16:05] VITALS: BP 110/48
[2017-01-19 19:35] VITALS: BP 112/48
[2017-01-20 04:51] VITALS: BP 122/55
[2017-01-20 06:51] LABS: HEMOGLOBIN 9.6 gm/dL (14.0-18.0); MCH 29.2 pg (26.0-34.0); MCHC 33.2 g/dL (28.0-37.0); PLATELET COUNT 303 thou/uL (150-400); RDW 14.8 % (10.5-14.5); WBC 17.2 thou/uL (4.0-11.0)
[2017-01-20 06:52] LABS: MANUAL DIFF YES
[2017-01-20 07:08] LABS: CALCIUM 8.4 mg/dL (8.5-10.1); CREATININE 1.6 mg/dL (0.7-1.3); POTASSIUM 3.5 mmol/L (3.5-5.1)
[2017-01-20 07:28] LABS: ABSOLUTE NEUTROPHILS 16.2 thou/uL (1.4-8.2); METAMYELOCYTES 2 %; TOTAL CELL COUNT 100
[2017-01-20 07:29] LABS: ANISOCYTOSIS 1+; HYPOCHROMASIA 1+
[2017-01-20 14:05] VITALS: BP 103/49
[2017-01-20 17:24] VITALS: BP 108/51
[2017-01-20 19:20] VITALS: BP 97/50
[2017-01-21 03:30] VITALS: BP 101/48
[2017-01-21 08:15] VITALS: BP 112/53
[2017-01-21] MEDS ORDERED: CARDIZEM CD 18180 M3 PO (09:19)
[2017-01-21] MEDS ORDERED: TORSEMIDE20 MG PO (09:19)
[2017-01-21] MEDS ORDERED: VANCO 1 GR1 GM/250 M IVPB (09:19)
[2017-01-21] MEDS ORDERED: PREDNISONE 10 M10 MG PO (09:19)
[2017-01-21] MEDS ORDERED: DIGOXIN125 MCG PO (09:19)
[2017-01-21 12:45] VITALS: BP 104/48
[2017-01-21] MEDS ORDERED: MAGIC MOUTHWASH SWISH&SPIT (14:11)
== END 2017-01-21 15:30 | DRG 871 ==
LOC: ER 05:48 → ICU 07:36 → EROBS 07:36 → 2N 07:36 → ICU 09:16 → 2N 01-16 16:00
PROVIDERS: Emergency Medicine; Internal Medicine; Internal Medicine Endocrinology, Diabetes & Metabolism; Internal Medicine Pulmonary Disease
PROC: B548ZZA Ultrasonography of Superior Vena Cava, Guidance (ICD-10-PCS; principal; 2017-01-10)
PROC: 02HV33Z Insertion of Infusion Device into Superior Vena Cava, Percutaneous Approach (ICD-10-PCS; principal; 2017-01-10)
PROC: 5A09557 Assistance with Respiratory Ventilation, Greater than 96 Consecutive Hours, Continuous Positive Airway Pressure (ICD-10-PCS; principal; 2017-01-10)
DX: A41.02 Sepsis due to Methicillin resistant Staphylococcus aureus (principal); J96.21 Acute and chronic respiratory failure with hypoxia; J18.9 Pneumonia, unspecified organism; I50.33 Acute on chronic diastolic (congestive) heart failure; I13.0 Hypertensive heart and chronic kidney disease with heart failure and stage 1 through stage 4 chronic kidney disease, or unspecified chronic kidney disease; J44.1 Chronic obstructive pulmonary disease with (acute) exacerbation; J44.0 Chronic obstructive pulmonary disease with (acute) lower respiratory infection; I73.9 Peripheral vascular disease, unspecified; N18.3 Chronic kidney disease, stage 3 (moderate); I25.10 Atherosclerotic heart disease of native coronary artery without angina pectoris; E78.5 Hyperlipidemia, unspecified; I27.2 Other secondary pulmonary hypertension; R07.89 Other chest pain; E87.6 Hypokalemia; D50.0 Iron deficiency anemia secondary to blood loss (chronic); D72.829 Elevated white blood cell count, unspecified; I71.4 Abdominal aortic aneurysm, without rupture; Y95 Nosocomial condition; I48.0 Paroxysmal atrial fibrillation; T38.0X5A Adverse effect of glucocorticoids and synthetic analogues, initial encounter; I80.8 Phlebitis and thrombophlebitis of other sites; Z87.19 Personal history of other diseases of the digestive system; Z95.2 Presence of prosthetic heart valve; Z95.5 Presence of coronary angioplasty implant and graft; Z87.891 Personal history of nicotine dependence; Z79.82 Long term (current) use of aspirin; Z79.51 Long term (current) use of inhaled steroids; Z79.899 Other long term (current) drug therapy; Y92.89 Other specified places as the place of occurrence of the external cause
CPT/HCPCS: 10078; 10081; 27000